=== PATIENT | male | born 1955 | race Caucasian/White ===

== ENCOUNTER 2019-12-04 15:26 | Outpatient (REF) | payer OTHER, SELFPAY ==
[2019-12-04 16:33] LABS: Amphetamine Screen Urine Not Detected (Not Detect); Barbiturates, Urine Not Detected (Not Detect); Benzodiazepines Screen Urine POSITIVE (Not Detect); Cannabinoid Screen Urine Not Detected (Not Detect); Cocaine Screen Urine Not Detected (Not Detect); Opiate Screen Urine POSITIVE (Not Detect); Phencyclidine Screen Urine Not Detected (Not Detect)
== END 2019-12-04 15:27 | disposition home or self-care (01) ==
LOC: HO.LAB 15:26
PROVIDERS: PCP Internal Medicine; Visit Provider Clinical Nurse Specialist Psychiatric/Mental Health, Adult
DX: Z79.891 Long term (current) use of opiate analgesic (principal)
CPT/HCPCS: 80307

== ENCOUNTER 2019-12-14 08:30 | Outpatient (RCR) | payer OTHER, SELFPAY ==
[2019-12-01 12:59] VITALS: BMI 30.9
--- NOTE | 2019-12-01 13:02 | PC.ADMIT ---
Patient is a 63 year old male who was referred by his therapist for increased depressive sxs including passive SI. Patient stated that this started when he was laid off from his job of 44 years in April and his depressive symptoms have progressively gotten worse. Feeling helpless and hopeless and has been isolating. Feels worthless, stating he is not the man he used to be. While on vacation patient stated he did not enjoy himself and described himself as being mad all week, yelling at himself. Patient stated this is the first time he has not had a job in his entire life. Reports no structure and is unable to enjoy the things he once enjoyed. He states he wants to get in the swing of things and that he wants to feel important again. Denied SI or thoughts to hurt himself. Gave verbal permission to email him a copy of his safety plan. Medications reconciled with patient and patients pharmacy. Patient reports he is taking his medications as prescribed. Reports HX of substance abuse in 2004, denied any use since then. Patient has chronic back pain and attends a pain management program in addition to being prescribed opiate pain medications. He reports they provide random drug screens and pill counts to confirm medication compliance. Patient is aware that [facility] provided PAUL as well. Nursing assessment completed via telephone d/t pandemic/program platform.
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
--- NOTE | 2019-12-05 08:00 | PC.NURSE ---
12/04/19 clients case opened in treatment team
--- NOTE | 2019-12-05 16:18 | P.PNPSP_ITS ---
Subjective Subjective Date of Service: 12/05/19 Reason For Visit: depression Interim History: Joe reports he is finding the program helpful. Reviewed information given by his out patient prescriber. Pt would like to trial a mood stabilizer. At this time, he believes that the Seroquel is high enough at 775mg as he has had intermittent vertigo, but sleep has improved a great deal with titration of the Seroquel and cessation of Sertraline. PAUL + opiates, benzodiazepines as expected. 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 The loss has been just terrible , unbearable at times. Medication Compliance: Yes Side effects from medications: Yes (intermittent vertigo) Attending Groups: Yes Review of Systems Constitutional: Reports no additional constitutional complaints and Reports body ache(s) (chronic back pain) Psychiatric: Reports anxiety, Reports change in appetite (40 lb weight loss), Re ports depression, Reports difficulty concentrating, Reports hopelessness and Reports irritability Mental Status Exam Mental Status Exam Patient Orientation: Person, Place, Time and Situation Level of Consciousness: Awake, Appropriate and Alert Patient Behavior: Appropriate and Cooperative Mood Description: Depressed, Anxious, Nervous and Apprehensive Affect Description: Depressed, Anxious, Nervous and Apprehensive Patient Cognition Impaired: No Ability to Follow Directions: Excellent Speech Pattern: Clear and Appropriate Memory Description: Intact Hallucinations: None Delusions: Not Present Thought Process: Intact Thought Content: positive for Intact and positive for Circumstantial Depressive Symptoms: Increased Anxiety and Back Pain (chronic-spinal stenosis) Judgement: Good Diagnostics Vital Signs (24Hr): Body Mass Index 30.9 Labs Labs: PAUL + opiates, benzodiazepines as expected with his current regime Assessment & Plan Patient educated on: diagnosis, medication risk/benefits, therapeutic strategies and medical condition Guardian/Caregiver educated on: other ( made herself available for this telehealth appointment) Informed Consent: understands and further education needed Reason for contiued partial hosp. stay Substantial Risk for: harm to self, inability to function and rapid decompensation Certification I certify that partial hospital treatment is medically necessary due to the symptoms and problems resulting from the patient's mental illness and the failure to treat the patient at the partial hospital level of care would likely result in the patient requiring inpatient psychiatric care which could not be prevented at a less intensive level of care. Greater than 50% of the session was spent on counseling and/or coordination of care Discharge Plan Discharge Attending provider: Ez Best Additional Instructions: Continue current regime Information sent to pt on Lamictal for review. Pt and will review and decide. Out pt team had suggested an increase in Seroquel or addition of a mood stabilizer. Medications: No Action oxycodone-acetaminophen 5-325 mg Tablet 1 tab PO QID RF: 0 Soma 350 mg 350 mg PO QID RF: 0 multivitamin Tablet 1 tab PO DAILY RF: 0 quetiapine [Seroquel] 300 mg Tablet 600 mg PO BEDTIME RF: 0 quetiapine [Seroquel] 100 mg Tablet 100 mg PO BEDTIME RF: 0 sildenafil [Viagra] 100 mg Tablet 100 mg PO DAILY PRN (Reason: Erectile Dysfunction) RF: 0 simvastatin 40 mg Tablet 40 mg PO BEDTIME RF: 0 clonazepam 2 mg Tablet 2 mg PO BEDTIME RF: 0 OxyContin 20 mg Tablet Extended Release 12 Hr 20 mg PO QID RF: 0 quetiapine [Seroquel] 25 mg Tablet 75 mg PO BEDTIME RF: 0
--- NOTE | 2019-12-07 15:07 | PM.EVENT ---
Event Note Event Note: Call to pt to discuss sx and how he is feeling. Reports no Tylenol since afternoon on 12/06/19. Reports he is afebrile ( confirms), without any symptoms of illness, having had a restful sleep last evening. Reports will have diagnostics on 12/07 (abd CAT) as she has had GI sx for ~2 weeks. He is concerned about her as she is never ill. States he will be in program until next . Both he and continue to want to begin Lamictal trial. Discussed his questions. He will begin dosing on 12/07. Should he become febrile on 12/07, he will hold Lamictal.
--- NOTE | 2019-12-13 14:34 | HO.PHPPROGNO ---
Subjective Subjective Date of Service: 12/13/19 Reason For Visit: depression Interim History: Joseluis plans discharge this week. He reports feeling improved with a renewed hope for life. Discussed ex- having COVID and his concerns. Reports he initiated Lamictal on 12/11- will be ready for titration on 11/25/19. recoving from colitis-this episode was serious-pt states her medical team believes it was COVID with negative testing. Pt reports no COVID sx- no fever, reports feeling very well. Medication Compliance: Yes Side effects from medications: No Attending Groups: Yes Review of Systems Review of Systems Yes all other systems are reviewed and are negative Psychiatric: Reports no additional psychiatric complaints and Reports other (worry about his work-plans to look into taking courses) Mental Status Exam Mental Status Exam Patient Orientation: Person, Place, Time and Situation Level of Consciousness: Awake, Appropriate and Alert Patient Behavior: Appropriate Mood Description: Calm Affect Description: Calm Patient Cognition Impaired: No Ability to Follow Directions: Excellent Speech Pattern: Clear, Appropriate and Spontaneous Speech Memory Description: Intact Hallucinations: None Delusions: Not Present Thought Process: Intact Thought Content: positive for Intact Judgement: Good Diagnostics Vital Signs (24Hr): Body Mass Index 30.9 Assessment & Plan Patient educated on: medication risk/benefits and therapeutic strategies Informed Consent: understands and further education needed Reason for contiued partial hosp. stay Substantial Risk for: inability to function and rapid decompensation Certification I certify that partial hospital treatment is medically necessary due to the symptoms and problems resulting from the patient's mental illness and the failure to treat the patient at the partial hospital level of care would likely result in the patient requiring inpatient psychiatric care which could not be prevented at a less intensive level of care. Greater than 50% of the session was spent on counseling and/or coordination of care Discharge Plan Discharge Attending provider: Ez Best Additional Instructions: Continue current regime Information sent to pt on Lamictal for review. Pt and will review and decide. Out pt team had suggested an increase in Seroquel or addition of a mood stabilizer. 12/07/19- begin Lamictal 25 mg daily. 12/13/19- Pt reports he initiated Lamictal on 12/12/19. 25 mg Plans discharge this week. Medications: New lamotrigine [Lamictal] 25 mg tablet 25 mg PO DAILY 14 Days Qty: 14 RF: 0 No Action oxycodone-acetaminophen 5-325 mg Tablet 1 tab PO QID RF: 0 Soma 350 mg 350 mg PO QID RF: 0 multivitamin Tablet 1 tab PO DAILY RF: 0 quetiapine [Seroquel] 300 mg Tablet 600 mg PO BEDTIME RF: 0 quetiapine [Seroquel] 100 mg Tablet 100 mg PO BEDTIME RF: 0 sildenafil [Viagra] 100 mg Tablet 100 mg PO DAILY PRN (Reason: Erectile Dysfunction) RF: 0 simvastatin 40 mg Tablet 40 mg PO BEDTIME RF: 0 clonazepam 2 mg Tablet 2 mg PO BEDTIME RF: 0 OxyContin 20 mg Tablet Extended Release 12 Hr 20 mg PO QID RF: 0 quetiapine [Seroquel] 25 mg Tablet 75 mg PO BEDTIME RF: 0
--- NOTE | 2019-12-15 08:14 | PC.NURSE ---
Clients case closed in clinical team
--- NOTE | 2019-12-15 08:15 | PC.NURSE ---
Case closed in treatment team on 12/14/2019
--- NOTE | 2019-12-15 08:17 | PC.NURSE ---
Left message with Svetlana Alvarez, clients therapist, to inform her of client progress while in program and talkative presentation at [facility].
--- NOTE | 2019-12-15 09:40 | PC.NURSE ---
Spoke to Joe this morning and he reports he now has an appointment on December 18, 2019 with his prescriber Carito Davenport APRN.
== END 2019-12-14 23:55 | disposition home or self-care (01) ==
LOC: HO.PHPA 08:30
PROVIDERS: Visit Provider Psychiatry & Neurology Psychiatry
DX: F31.30 Bipolar disorder, current episode depressed, mild or moderate severity, unspecified (principal); F43.10 Post-traumatic stress disorder, unspecified
CPT/HCPCS: 90792; 90853; 99213; 99214